=== PATIENT | male | born 1995 | race Caucasian/White ===

== ENCOUNTER 2023-01-13 21:04 | Emergency (ER) | payer SELFPAY ==
[2023-01-13] MEDS ORDERED: ONDANSETRON 4 MG/2 ML VIAL ONE ×2 (21:58→22:09)
[2023-01-13] MEDS ORDERED: MORPHINE 4 MG/ML SYR ONE ×3 (21:58→22:45)
[2023-01-13] MEDS ORDERED: PANTOPRAZOLE 40 MG INJ ONE ×2 (21:58→22:09)
[2023-01-13] MEDS ORDERED: FAMOTIDINE 20 MG/2 ML VIAL IV ONE ×2 (21:59→22:09)
[2023-01-13] MEDS ORDERED: NA CHLORIDE 0.9% 1,000 ML ONE (22:09)
[2023-01-13 22:11] LABS: Absolute Lymphocytes (CBC) 2.4 K/uL (0.7-4.9); Hematocrit 46.4 % (39.6-49.0); Lymphocytes % 26.2 % (15.3-44.8); MCV 85.1 fL (80-100); MPV 8.2 fL (7.6-11.3); RBC Red Blood Cell Count 5.45 M/uL (4.33-5.43)
[2023-01-13 22:16] LABS: Protime INR 0.93
[2023-01-13 22:29] LABS: Albumin 4.3 g/dL (3.4-5.0); Bilirubin Total 0.6 mg/dL (0.2-1.0); Potassium 3.8 mEq/L (3.5-5.1)
[2023-01-14] MEDS ORDERED: HYDROMORPHONE HCL 1 MG/ML INJ ONE (00:19)
[2023-01-14] MEDS ORDERED: NA CHLORIDE 0.9% 1,000 ML ONE (00:20)
[2023-01-14 00:52] LABS: Barbiturates NEGATIVE (NEGATIVE); Benzodiazepines NEGATIVE (NEGATIVE); Cocaine NEGATIVE (NEGATIVE); METHAMPHETAM NEGATIVE (NEGATIVE); Methadone NEGATIVE (NEGATIVE); Opiates POSITIVE (NEGATIVE); Phencyclidine NEGATIVE (NEGATIVE); THC Cannibis NEGATIVE (NEGATIVE)
[2023-01-14] MEDS ORDERED: MAGNES/ALUMIN/SIMET 30ML UCUP ONE (01:44)
[2023-01-14] MEDS ORDERED: LIDOCAINE VISCOUS 2% SOLN 15 ML UDC ONE (01:45)
[2023-01-14] MEDS ORDERED: PROMETHAZINE INJ 25 MG/ML AMP ONE (02:03)
--- NOTE | 2023-01-14 02:23 | ER ---
Nurse's Notes [facility] Name: Javier Meredith Age: 27 yrs Sex: Male : 1995 Arrival Date: 01/13/2023 Time: 21:04 Bed 4 Private MD: Diagnosis: Nausea with vomiting, unspecified Presentation: 01/13 21:26 Chief complaint: Patient states: started vomiting around 0700 this morning. at first it lg3 was just a little bit but around 1200 i started having abdominal pain and the amount of blood increased. now its solid blood. Coronavirus screen: Client denies travel out of the [place] in the last 14 days. At this time, the client does not indicate any symptoms associated with coronavirus-19. Ebola Screen: No symptoms or risks identified at this time. Initial Sepsis Screen: Does the patient meet any 2 criteria? No. Patient's initial sepsis screen is negative. Does the patient have a suspected source of infection? No. Patient's initial sepsis screen is negative. Risk Assessment: Do you want to hurt yourself or someone else? Patient reports no desire to harm self or others. Onset of symptoms was January 13, 2023. 21:26 Method Of Arrival: Ambulatory lg3 21:26 Acuity: FRITZ 3 lg3 Triage Assessment: 21:31 General: Appears in no apparent distress. uncomfortable, Behavior is calm, cooperative. lg3 Pain: Complains of pain in epigastric area, right upper quadrant and left upper quadrant. EENT: No deficits noted. No signs and/or symptoms were reported regarding the EENT system. Neuro: No deficits noted. Bae Agitation-Sedation Scale (RASS): 0 - Alert and Calm Level of Consciousness is awake, alert, obeys commands, Oriented to person, place, time, situation. Cardiovascular: No deficits noted. Respiratory: No deficits noted. Airway is patent Respiratory effort is even, unlabored, Respiratory pattern is regular, symmetrical. GI: Reports upper abdominal pain, bloating, cramping, epigastric pain, indigestion, nausea, vomiting. : No deficits noted. No signs and/or symptoms were reported regarding the genitourinary system. Derm: No deficits noted. Skin is intact, is healthy with good turgor, Skin is dry, Skin is normal, Skin temperature is warm. Musculoskeletal: No deficits noted. No signs and/or symptoms reported regarding the musculoskeletal system. Circulation, motion, and sensation intact. Range of motion: intact in all extremities. Historical: - Allergies: 21:30 PENICILLINS; lg3 - Home Meds: 21:30 None [Active]; lg3 - PMHx: 21:30 None; lg3 - PSHx: 21:30 left arm; lg3 21:31 Cholecystectomy; Appendectomy; lg3 - Immunization history:: Adult Immunizations up to date, Client reports having NOT received the Covid vaccine. - Social history:: Smoking status: Patient denies any tobacco usage or history of. Patient uses alcohol, only on a social basis. Screenin:22 [facility] ED Fall Risk Assessment (Adult) History of falling in the last 3 months, lg3 including since admission No falls in past 3 months (0 pts). Abuse screen: Denies threats or abuse. Denies injuries from another. Nutritional screening: No deficits noted. Tuberculosis screening: No symptoms or risk factors identified. Assessment: 22:21 General: see triage assessment . lg3 22:22 GI: Abdomen is flat, non-distended, Bowel sounds present X 4 quads. Abd is soft X 4 lg3 quads Abdomen is tender to palpation in epigastric area, right upper quadrant and left upper quadrant Reports upper abdominal pain, cramping, nausea, vomiting. 22:47 Pain: Complains of pain in left upper quadrant and right upper quadrant and epigastric lg3 area Pain currently is 9 out of 10 on a pain scale. Noted to be grimacing, guarding, resistant to movement, Also complains of nausea. 23:58 Reassessment: Patient appears in no apparent distress at this time. No changes from lg3 previously documented assessment. Patient and/or family updated on plan of care and expected duration. Pain level reassessed. Patient is alert, oriented x 3, equal unlabored respirations, skin warm/dry/pink. 01/14 01:47 Reassessment: Patient appears in no apparent distress at this time. No changes from lg3 previously documented assessment. Patient and/or family updated on plan of care and expected duration. Pain level reassessed. Patient is alert, oriented x 3, equal unlabored respirations, skin warm/dry/pink. Patient states symptoms have improved. 02:42 Reassessment: Patient appears in no apparent distress at this time. No changes from lg3 previously documented assessment. Patient and/or family updated on plan of care and expected duration. Pain level reassessed. Patient is alert, oriented x 3, equal unlabored respirations, skin warm/dry/pink. Patient states feeling better. Patient states symptoms have improved. Vital Signs: 01/13 21:26 BP 158 / 87; Pulse 96; Resp 16 S; Temp 99(TE); Pulse Ox 100% on R/A; Weight 104.33 kg lg3 (R); Height 6 ft. 0 in. (R); Pain 9/10; 22:22 BP 153 / 91; Pulse 80; Resp 17 S; Pulse Ox 98% on R/A; lg3 23:59 BP 139 / 92; Pulse 78; Resp 16 S; Pulse Ox 99% on R/A; lg3 01/14 02:43 BP 141 / 88; Pulse 77; Resp 17 S; Pulse Ox 99% on R/A; lg3 01/13 21:26 Body Mass Index 31.19 (104.33 kg, 182.88 cm) lg3 01/13 21:26 Pain Scale: Adult lg3 ED Course: 01/13 21:09 Patient arrived in ED. ag3 21:15 Aric Parra PA is PHCP. cp 21:15 Barber Menezes MD is Attending Physician. cp 21:30 Triage completed. lg3 21:31 Arm band placed on right wrist. lg3 21:52 Stefania Szymanski, RN is Primary Nurse. aa9 21:57 Inserted saline lock: 22 gauge in left antecubital area, using aseptic technique. Blood lg3 collected. 21:58 CBC with Diff Sent. lg3 21:58 CMP Sent. lg3 21:58 Lipase Sent. lg3 21:58 Ptt, Activated Sent. lg3 21:58 PT-INR Sent. lg3 21:58 ETOH Level Sent. lg3 22:22 Patient has correct armband on for positive identification. Placed in gown. Bed in low lg3 position. Call light in reach. Side rails up X 1. Client placed on continuous cardiac and pulse oximetry monitoring. NIBP monitoring applied. Door closed. Noise minimized. Warm blanket given. 23:04 CT Abd/Pelvis - IV Contrast Only In Process Unspecified. EDMS 01/14 00:26 UDS Sent. lg3 02:22 George House MD is Referral Physician. cp 02:43 No provider procedures requiring assistance completed. IV discontinued, intact, lg3 bleeding controlled, No redness/swelling at site. Pressure dressing applied. Administered Medications: 01/13 21:58 Drug: NS 0.9% IV 1000 ml Route: IV; Rate: 1 bolus; Site: left antecubital; lg3 22:48 Follow up: Response: No adverse reaction; IV Status: Completed infusion; IV Intake: lg3 1000ml 21:58 Drug: Famotidine IVP 20 mg Route: IVP; Site: left antecubital; lg3 22:47 Follow up: Response: No adverse reaction lg3 21:58 Drug: Ondansetron IVP 4 mg Route: IVP; Site: left antecubital; lg3 22:48 Follow up: Response: No adverse reaction; Marked relief of symptoms; Nausea is decreasedlg3 21:58 Drug: Pantoprazole IVP 40 mg Route: IVP; Site: left antecubital; lg3 22:47 Follow up: Response: No adverse reaction lg3 21:58 Drug: morphine IVP or IV 4 mg Route: IVP; Infused Over: 4 mins; Site: left antecubital; lg3 22:47 Follow up: Response: No adverse reaction; No change in condition; Pain is unchanged, lg3 physician notified 22:47 Drug: morphine IVP or IV 4 mg Route: IVP; Infused Over: 4 mins; Site: left antecubital; lg3 01/14 02:42 Follow up: Response: No adverse reaction; No change in condition lg3 00:26 Drug: HYDROmorphone IVP 1 mg Route: IVP; Site: left antecubital; lg3 02:42 Follow up: Response: No adverse reaction; Marked relief of symptoms; Pain is decreased; lg3 RASS: Alert and Calm (0) 00:26 Drug: NS 0.9% IV 1000 ml Route: IV; Rate: 1 bolus; Site: left antecubital; lg3 02:46 Follow up: Response: No adverse reaction; IV Status: Completed infusion; IV Intake: lg3 1000ml 01:46 Drug: GI Cocktail without - (Maalox PO Suspension 30 ml, Lidocaine Mucous aa9 Membrane Liquid 2 % 15 ml) Route: PO; 02:07 Follow up: Response: Nausea is increased lg3 02:07 Drug: Promethazine IVP 25 mg Route: IVP; Site: left antecubital; lg3 02:42 Follow up: Response: No adverse reaction; Marked relief of symptoms; Nausea is decreasedlg3 Medication: 02:44 VIS not applicable for this client. lg3 Intake: 01/13 22:48 IV: 1000ml; Total: 1000ml. lg3 01/14 02:46 IV: 1000ml; Total: 2000ml. lg3 Outcome: 02:22 Discharge ordered by . andrea 02:43 Discharged to home ambulatory. lg3 02:43 Condition: stable 02:43 Discharge instructions given to patient, Instructed on discharge instructions, follow up and referral plans. medication usage, Demonstrated understanding of instructions, follow-up care, medications, Prescriptions given X 2. 02:46 Patient left the ED. lg3 Signatures: Dispatcher [employer] EDMS Aric Parra PA PA cp Gomez, Alice ag3 Macie Francois RN RN lg3 Stefania Szymanski RN RN aa9 Corrections: (The following items were deleted from the chart) 01/13 21:32 21:30 Allergies: No Known Allergies; lg3 lg3
--- NOTE | 2023-01-14 02:23 | EDPHYS ---
Physician Documentation [facility] Name: Javier Meredith Age: 27 yrs Sex: Male : 1995 Arrival Date: 01/13/2023 Time: 21:04 Bed 4 Private MD: ED Physician Barber Menezes HPI: 01/13 22:00 This 27 yrs old Male presents to ER via Ambulatory with complaints of Vomiting. cp 22:00 The patient presents to the emergency department with nausea, that is moderate, cp vomiting, that is continuous, described as bright red blood, abdominal pain, of the epigastric area, right upper quadrant and left upper quadrant. Onset: The symptoms/episode began/occurred this morning, and became worse throughout day. Possible causes: unknown. Associated signs and symptoms: Pertinent positives: anorexia, GI bleeding, Pertinent negatives: constipation, diarrhea, fever. Severity of symptoms: in the emergency department the symptoms are unchanged despite home interventions. The patient has not experienced similar symptoms in the past. Historical: - Allergies: 21:30 PENICILLINS; lg3 - Home Meds: 21:30 None [Active]; lg3 - PMHx: 21:30 None; lg3 - PSHx: 21:30 left arm; lg3 21:31 Cholecystectomy; Appendectomy; lg3 - Immunization history:: Adult Immunizations up to date, Client reports having NOT received the Covid vaccine. - Social history:: Smoking status: Patient denies any tobacco usage or history of. Patient uses alcohol, only on a social basis. ROS: 22:05 Constitutional: Positive for chills, poor PO intake, Negative for body aches, fever. cp 22:05 Eyes: Negative for injury, pain, redness, and discharge. cp 22:05 ENT: Negative for drainage from ear(s), ear pain, difficulty swallowing, difficulty handling secretions. 22:05 Cardiovascular: Negative for chest pain, palpitations. 22:05 Respiratory: Negative for cough, shortness of breath, wheezing. 22:05 Abdomen/GI: Positive for abdominal pain, nausea and vomiting, anorexia, hematemesis. 22:05 Neuro: Negative for altered mental status, dizziness, headache, syncope, weakness. 22:05 All other systems are negative. Exam: 22:10 Constitutional: The patient appears in no acute distress, alert, awake, cp non-diaphoretic, non-toxic, well developed, well nourished, uncomfortable. 22:10 Head/Face: Normocephalic, atraumatic. cp 22:10 Eyes: Periorbital structures: appear normal, Conjunctiva: normal, no exudate, no injection, Sclera: no appreciated abnormality, Lids and lashes: appear normal, bilaterally. 22:10 ENT: External ear(s): are unremarkable, Nose: is normal, Mouth: Lips: moist, Oral mucosa: pink and intact, moist, Posterior pharynx: is normal, airway is patent, no erythema, no exudate. 22:10 Neck: ROM/movement: is normal, is supple, without pain, no range of motions limitations. 22:10 Chest/axilla: Inspection: normal. 22:10 Cardiovascular: Rate: normal, Rhythm: regular. 22:10 Respiratory: the patient does not display signs of respiratory distress, Respirations: normal, no use of accessory muscles, no retractions, labored breathing, is not present, Breath sounds: are clear throughout, no decreased breath sounds, no stridor, no wheezing. 22:10 Abdomen/GI: Inspection: abdomen appears normal, Bowel sounds: active, all quadrants, Palpation: soft, in all quadrants, severe abdominal tenderness, in the epigastric area. 22:10 Back: pain, is absent, ROM is normal. 22:10 Neuro: Orientation: to person, place \T\ time. Mentation: is normal, Motor: moves all fours, strength is normal, Sensation: is normal. Vital Signs: 21:26 BP 158 / 87; Pulse 96; Resp 16 S; Temp 99(TE); Pulse Ox 100% on R/A; Weight 104.33 kg lg3 (R); Height 6 ft. 0 in. (R); Pain 9/10; 22:22 BP 153 / 91; Pulse 80; Resp 17 S; Pulse Ox 98% on R/A; lg3 23:59 BP 139 / 92; Pulse 78; Resp 16 S; Pulse Ox 99% on R/A; 3 01/14 02:43 BP 141 / 88; Pulse 77; Resp 17 S; Pulse Ox 99% on R/A; lg3 01/13 21:26 Body Mass Index 31.19 (104.33 kg, 182.88 cm) lg3 01/13 21:26 Pain Scale: Adult lg3 MDM: 01/13 21:35 Patient medically screened. cp 01/14 02:21 Data reviewed: vital signs, nurses notes, lab test result(s), radiologic studies, CT cp scan, plain films. 02:21 Consideration of Admission/Observation Escalation of care including cp admission/observation considered. I considered the following discharge prescriptions or medication management in the emergency department Medications were administered in the Emergency Department. See MAR. Counseling: I had a detailed discussion with the patient and/or guardian regarding: the historical points, exam findings, and any diagnostic results supporting the discharge/admit diagnosis, lab results, radiology results, the need for outpatient follow up, a grade school teacher, to return to the emergency department if symptoms worsen or persist or if there are any questions or concerns that arise at home. Response to treatment: the patient's symptoms have markedly improved after treatment, VSS. Pain and nausea markedly improved and vomiting resolved. Patient tolerating po fluids. Will discharge to home for continued monitoring. 01/13 21:39 Order name: CBC with Diff; Complete Time: 22:39 cp 01/13 21:39 Order name: CMP; Complete Time: 22:39 cp 01/13 21:39 Order name: Lipase; Complete Time: 22:39 cp 01/13 21:39 Order name: UDS; Complete Time: 01:24 cp 01/14 01:24 Interpretation: Normal except: OPI POSITIVE. cp 01/13 21:39 Order name: ETOH Level; Complete Time: 22:39 cp 01/13 21:39 Order name: PT-INR; Complete Time: 22:39 cp 01/13 21:39 Order name: Ptt, Activated; Complete Time: 22:39 cp 01/13 21:39 Order name: CT Abd/Pelvis - IV Contrast Only cp 01/13 21:39 Order name: IV Saline Lock; Complete Time: 21:58 cp 01/13 21:39 Order name: Labs collected and sent; Complete Time: 21:58 cp Administered Medications: 01/13 21:58 Drug: NS 0.9% IV 1000 ml Route: IV; Rate: 1 bolus; Site: left antecubital; lg3 22:48 Follow up: Response: No adverse reaction; IV Status: Completed infusion; IV Intake: lg3 1000ml 21:58 Drug: Famotidine IVP 20 mg Route: IVP; Site: left antecubital; lg3 22:47 Follow up: Response: No adverse reaction lg3 21:58 Drug: Ondansetron IVP 4 mg Route: IVP; Site: left antecubital; lg3 22:48 Follow up: Response: No adverse reaction; Marked relief of symptoms; Nausea is decreasedlg3 21:58 Drug: Pantoprazole IVP 40 mg Route: IVP; Site: left antecubital; lg3 22:47 Follow up: Response: No adverse reaction lg3 21:58 Drug: morphine IVP or IV 4 mg Route: IVP; Infused Over: 4 mins; Site: left antecubital; lg3 22:47 Follow up: Response: No adverse reaction; No change in condition; Pain is unchanged, lg3 physician notified 22:47 Drug: morphine IVP or IV 4 mg Route: IVP; Infused Over: 4 mins; Site: left antecubital; lg3 01/14 02:42 Follow up: Response: No adverse reaction; No change in condition lg3 00:26 Drug: HYDROmorphone IVP 1 mg Route: IVP; Site: left antecubital; lg3 02:42 Follow up: Response: No adverse reaction; Marked relief of symptoms; Pain is decreased; lg3 RASS: Alert and Calm (0) 00:26 Drug: NS 0.9% IV 1000 ml Route: IV; Rate: 1 bolus; Site: left antecubital; lg3 02:46 Follow up: Response: No adverse reaction; IV Status: Completed infusion; IV Intake: lg3 1000ml 01:46 Drug: GI Cocktail without - (Maalox PO Suspension 30 ml, Lidocaine Mucous aa9 Membrane Liquid 2 % 15 ml) Route: PO; 02:07 Follow up: Response: Nausea is increased lg3 02:07 Drug: Promethazine IVP 25 mg Route: IVP; Site: left antecubital; lg3 02:42 Follow up: Response: No adverse reaction; Marked relief of symptoms; Nausea is decreasedlg3 Disposition Summary: 01/14/23 02:22 Discharge Ordered Location: Home cp Problem: new cp Symptoms: have improved cp Condition: Stable cp Diagnosis - Nausea with vomiting, unspecified cp Followup: cp - With: George House MD - When: 2 - 3 days - Reason: Recheck today's complaints Discharge Instructions: - Discharge Summary Sheet cp - Gastritis, Adult cp - Nausea and Vomiting, Adult cp - Smoking Tobacco Information, Adult cp Forms: - Medication Reconciliation Form cp - Thank You Letter cp - Antibiotic Education cp - Prescription Opioid Use cp Prescriptions: - Protonix 40 mg Oral tablet,delayed release (DR/EC) - take 1 tablet by ORAL route every 12 hours for 15 days; 30 tablet; Refills: 0, cp Product Selection Permitted - promethazine 25 mg Oral Tablet - take 1 tablet by ORAL route every 6 hours As needed; 20 tablet; Refills: 0, cp Product Selection Permitted Signatures: Dispatcher [employer] EDMS Aric Parra PA PA cp Macie Francois RN RN lg3 Stefania Szymanski RN RN aa9 Corrections: (The following items were deleted from the chart) 01/13 21:32 21:30 Allergies: No Known Allergies; lg3 lg3
[2023-01-14 04:30] VITALS: TEMP 99
[2023-01-14 04:32] VITALS: O2SAT 99
[2023-01-14 04:34] VITALS: BP 141/88
--- NOTE | 2023-01-14 11:23 | RAD REPORT ---
EXAM DESCRIPTION: CT - Abdomen Pelvis W Contrast - 01/14/2023 6:56 am CLINICAL HISTORY: Epigastric pain. TECHNIQUE: CT scan of the abdomen and pelvis was performed with intravenous contrast. 5 mm axial olga ges were obtained along with coronal and sagittal reformatted images. DOSE OPTIMIZATION: This facility uses dose optimization techniques as appropriate to perform exams, i ncluding at least one of the following techniques: 1. Automated exposure control. 2. Adjustment of the mA and/or kV according to patient size (this includes techniques or standardized protocols for targeted exams where dose is matched to the indication/reason for exam, i.e. extremiti es or head). 3. Use of iterative reconstructive technique. COMPARISON: None. FINDINGS: Lung Bases: No active disease. Liver: There is diffuse fatty liver infiltration. Spleen: Normal. Pancreas: Normal. Gallbladder: Surgically absent. Adrenal Glands: Normal. Kidneys: Normal. Retroperitoneal Structures: Normal. Bowel Survey: The stomach is unremarkable. There are multiple mildly distended small bowel loops with air-fluid levels. The appendix is unremarkable. The colon is nondistended. Prostate Gland: Normal size. Urinary Bladder: Normal. Peritoneal Cavity: Normal. Mesenteric Structures: Normal. Abdominal Wall: No hernia. Bony Structures: No suspicious lesions. IMPRESSION: 1. Findings suggestive of enteritis. 2. There is diffuse fatty liver infiltration. Electronically signed by: Carlito Saenz MD 01/14/2023 1:17 AM CDT Due to temporary technical issues with the PACS/Fluency reporting system, reports are being signed by the in house radiologist without review as a courtesy to ensure prompt reporting. The interpreting r adiologist is fully responsible for the content of the report.
== END 2023-01-14 02:46 | disposition home or self-care (01) ==
LOC: ER 21:04
DX: R11.2 Nausea with vomiting, unspecified (principal)
CPT/HCPCS: 36415; 74177; 80053; 80307; 83690; 85025; 85610; 85730; 96361; 96374; 96375; 99284; C9113; G0480; J1170; J2405; J2550; J7030; Q9967

== ENCOUNTER 2023-01-14 13:56 | Inpatient (IN) | payer SELFPAY ==
[2023-01-14 15:04] LABS: Absolute Lymphocytes (CBC) 1.8 K/uL (0.7-4.9); Hematocrit 42.7 % (39.6-49.0); MCV 84.5 fL (80-100); MPV 8.1 fL (7.6-11.3); RBC Red Blood Cell Count 5.05 M/uL (4.33-5.43)
[2023-01-14 15:09] LABS: Protime INR 0.91
--- NOTE | 2023-01-14 15:18 | ER ---
Nurse's Notes [facility] Name: Javier Meredith Age: 27 yrs Sex: Male : 1995 Arrival Date: 01/14/2023 Time: 13:56 Bed 17 Private MD: Diagnosis: Hematemesis;Infectious gastroenteritis and colitis, unspecified;Intractable vomiting with failure of outpatient management Presentation: 01/14 14:04 Chief complaint: Patient states: he was evaluated in the ED last night for abdominal ap3 pain and vomiting blood, and was told upon discharge that if it occurred again, to return for further evaluation. Patient reports the abdominal pain is still present and he did vomit blood again after attempting to eat and drink fluids. patient states his pain is currently a 9/10 on the pain scale. Coronavirus screen: At this time, the client does not indicate any symptoms associated with coronavirus-19. Ebola Screen: No symptoms or risks identified at this time. Initial Sepsis Screen: Does the patient meet any 2 criteria? No. Patient's initial sepsis screen is negative. Does the patient have a suspected source of infection? Yes: Acute abdominal pain. Risk Assessment: Do you want to hurt yourself or someone else? Patient reports no desire to harm self or others. Onset of symptoms was January 13, 2023. 14:04 Method Of Arrival: Ambulatory ap3 14:04 Acuity: FRITZ 3 ap3 Triage Assessment: 14:06 General: Appears uncomfortable, Behavior is calm, cooperative, appropriate for age. ap3 Pain: Complains of pain in abdomen Pain currently is 9 out of 10 on a pain scale. Neuro: Level of Consciousness is awake, alert, obeys commands, Oriented to person, place, time, situation. Cardiovascular: Patient's skin is warm and dry. Respiratory: Airway is patent Respiratory effort is even, unlabored, Respiratory pattern is regular, symmetrical. GI: Reports lower abdominal pain, upper abdominal pain, nausea, vomiting. Historical: - Allergies: 14:06 PENICILLINS; ap3 - PSHx: 14:06 Appendectomy; Cholecystectomy; left arm; ap3 - Immunization history:: Client reports having NOT received the Covid vaccine. - Social history:: Smoking status: Patient reports use of chewing tobacco. - Family history:: not pertinent. - Hospitalizations: : No recent hospitalization is reported. Screenin:07 [facility] ED Fall Risk Assessment (Adult) History of falling in the last 3 months, ap3 including since admission No falls in past 3 months (0 pts). Abuse screen: Denies threats or abuse. Nutritional screening: No deficits noted. Tuberculosis screening: No symptoms or risk factors identified. Assessment: 14:40 Reassessment: Patient appears in no apparent distress at this time. Patient and/or nj1 family updated on plan of care and expected duration. Pain level reassessed. Patient is alert, oriented x 3, equal unlabored respirations, skin warm/dry/pink. Pain: Complains of pain in abdomen Pain currently is 9 out of 10 on a pain scale. Quality of pain is described as stabbing. 14:40 Reassessment: See triage assessment. Neuro: Level of Consciousness is awake, alert, nj1 obeys commands, Oriented to person, place, time, situation. Cardiovascular: Patient's skin is warm and dry. Respiratory: Airway is patent Respiratory effort is even, unlabored. GI: Reports upper abdominal pain, intolerance of fluids, intolerance of food, nausea, Vomiting blood. 15:40 Reassessment: Patient appears in no apparent distress at this time. No changes from [facility] previously documented assessment. Patient and/or family updated on plan of care and expected duration. Pain level reassessed. Patient is alert, oriented x 3, equal unlabored respirations, skin warm/dry/pink. 17:00 Reassessment: Patient appears in no apparent distress at this time. Patient and/or nj1 family updated on plan of care and expected duration. Pain level reassessed. Patient is alert, oriented x 3, equal unlabored respirations, skin warm/dry/pink. Pain: Complains of pain in abdomen Pain currently is 9 out of 10 on a pain scale. Vital Signs: 14:04 BP 153 / 103; Pulse 80; Resp 19; Temp 98.4; Pulse Ox 100% ; Weight 104.33 kg; Height 6 ap3 ft. 0 in. ; Pain 9/10; 14:42 BP 138 / 86; Pulse 72; Resp 18; Pulse Ox 99% on R/A; Pain 9/10; nj1 15:40 BP 118 / 83; Pulse 66; Resp 16; Pulse Ox 98% ; Pain 9/10; nj1 17:00 BP 123 / 87; Pulse 69; Resp 16; Pulse Ox 100% on R/A; Pain 9/10; nj1 14:04 Body Mass Index 31.19 (104.33 kg, 182.88 cm) ap3 14:04 Pain Scale: Adult ap3 14:42 Pain Scale: Adult nj1 15:40 Pain Scale: Adult nj1 17:00 Pain Scale: Adult nj1 ED Course: 13:58 Patient arrived in ED. rg4 14:06 Triage completed. ap3 14:07 Addison Guardado MD is Attending Physician. rn 14:07 Arm band placed on right wrist. ap3 14:23 Debbi Peraza, ELLYN is Primary Nurse. nj1 14:40 Patient has correct armband on for positive identification. Bed in low position. Call nj1 light in reach. 14:42 Inserted saline lock: 20 gauge in left antecubital area, using aseptic technique. Blood nj1 collected. 14:54 Protime (+inr) Sent. nj1 14:54 Ptt, Activated Sent. nj1 14:54 CBC with Diff Sent. nj1 14:54 CMP Sent. nj1 14:54 Lipase Sent. nj1 15:17 Jarrod Guardado MD is Hospitalizing Provider. rn 23:35 Vale Lee, ELLYN is Primary Nurse. ha1 Administered Medications: 14:42 Drug: NS 0.9% IV 1000 ml Route: IV; Rate: 1 bolus; Site: left antecubital; nj1 15:05 Follow up: Response: No adverse reaction nj1 14:42 Drug: Famotidine IVP 20 mg Route: IVP; Site: left antecubital; nj1 15:05 Follow up: Response: No adverse reaction nj1 14:42 Drug: Ondansetron IVP 4 mg Route: IVP; Site: left antecubital; nj1 15:05 Follow up: Response: No adverse reaction nj1 15:43 Drug: Promethazine IVP 12.5 mg Route: IVP; Site: left antecubital; nj1 16:55 Follow up: Response: No adverse reaction; Nausea is decreased nj1 15:45 Drug: Pantoprazole IVP 40 mg Route: IVP; Site: left antecubital; nj1 16:56 Follow up: Response: No adverse reaction nj1 15:47 Drug: Pantoprazole IV 8 mg/hr Route: IV; Rate: 25 ml/hr; Site: left antecubital; nj1 17:00 Drug: morphine IVP or IV 4 mg Route: IVP; Infused Over: 4 mins; Site: left antecubital; nj1 18:51 Drug: morphine IVP or IV 4 mg Route: IVP; Infused Over: 4 mins; Site: left antecubital; ll1 Outcome: 15:17 Decision to Hospitalize by Provider. rn 01/15 07:43 Patient left the ED. db Signatures: Addison Guardado MD MD rn Garcia, Rubi rg4 Carmen Fuentes RN RN ap3 Marc Rivera RN RN ll1 Vale Lee RN RN ha1 Rebecca Mckinnon RN RN db Debbi Peraza RN RN nj1
--- NOTE | 2023-01-14 15:18 | EDPHYS ---
Physician Documentation [facility] Name: Javier Meredith Age: 27 yrs Sex: Male : 1995 Arrival Date: 01/14/2023 Time: 13:56 Bed 17 Private MD: ED Physician Addison Guardado HPI: 01/14 15:09 This 27 yrs old Male presents to ER via Ambulatory with complaints of Abdominal Pain, rn Vomiting Blood. 15:09 The patient presents to the emergency department vomiting blood, a small amount, blood rn streaked emesis, with multiple such episodes, 10 times since symptom onset. Onset: The symptoms/episode began/occurred yesterday. Abdominal pain: located in the epigastric area. Modifying factors: The symptoms are alleviated by nothing, the symptoms are aggravated by food, PO intake. Associated signs and symptoms: Pertinent positives: vomiting, Pertinent negatives: dizziness at rest, dizziness when standing, fever, shortness of breath. Severity of symptoms: At their worst the symptoms were moderate in the emergency department the symptoms are unchanged. The patient has not experienced similar symptoms in the past. The patient has been recently seen at the [facility] Emergency Department. Pt seen here yesterday for same complaint, diagnosed with hematemesis, 10-11 episodes since yesterday, not tolerating PO. No fever. No hx of GERD. + mild epigastric abd pain. NO blood thinners. No blood in stool. . Historical: - Allergies: 14:06 PENICILLINS; ap3 - PSHx: 14:06 Appendectomy; Cholecystectomy; left arm; ap3 - Immunization history:: Client reports having NOT received the Covid vaccine. - Social history:: Smoking status: Patient reports use of chewing tobacco. - Family history:: not pertinent. - Hospitalizations: : No recent hospitalization is reported. ROS: 15:09 Constitutional: Negative for fever, chills, and weight loss, Eyes: Negative for injury, rn pain, redness, and discharge, Cardiovascular: Negative for chest pain, palpitations, and edema, Respiratory: Negative for shortness of breath, cough, wheezing, and pleuritic chest pain, Abdomen/GI: Negative for diarrhea, and constipation MS/Extremity: Negative for injury and deformity, Skin: Negative for injury, rash, and discoloration, Neuro: Negative for headache, numbness, tingling, and seizure. Exam: 15:09 Constitutional: This is a well developed, well nourished patient who is awake, alert, rn and in no acute distress. Eyes: Normal conjunctivae Cardiovascular: Regular rate and rhythm. No pulse deficits. Respiratory: No increased work of breathing, no retractions or nasal flaring. Abdomen/GI: Soft, non-tender Vital Signs: 14:04 BP 153 / 103; Pulse 80; Resp 19; Temp 98.4; Pulse Ox 100% ; Weight 104.33 kg; Height 6 ap3 ft. 0 in. ; Pain 9/10; 14:42 BP 138 / 86; Pulse 72; Resp 18; Pulse Ox 99% on R/A; Pain 9/10; nj1 15:40 BP 118 / 83; Pulse 66; Resp 16; Pulse Ox 98% ; Pain 9/10; nj1 17:00 BP 123 / 87; Pulse 69; Resp 16; Pulse Ox 100% on R/A; Pain 9/10; nj1 14:04 Body Mass Index 31.19 (104.33 kg, 182.88 cm) ap3 14:04 Pain Scale: Adult ap3 14:42 Pain Scale: Adult nj1 15:40 Pain Scale: Adult nj1 17:00 Pain Scale: Adult nj1 MDM: 14:07 Patient medically screened. rn 15:09 Differential diagnosis: gastritis, esophagitis, Vanesa-hood tear. Data reviewed: rn vital signs, nurses notes, lab test result(s), radiologic studies, CT scan, and as a result, I will admit patient. Consideration of Admission/Observation Patient was admitted/placed on observation. Escalation of care including admission/observation considered. Management of patient was discussed with the following: Hospitalist: . Counseling: I had a detailed discussion with the patient and/or guardian regarding: the historical points, exam findings, and any diagnostic results supporting the discharge/admit diagnosis, the need for further work-up and treatment in the hospital. 15:16 I considered the following discharge prescriptions or medication management in the rn emergency department Medications were administered in the Emergency Department. See MAR. Response to treatment: There is no appreciated change of the patient's symptoms at this time, and as a result, I will admit patient. 01/14 14:14 Order name: CBC with Diff; Complete Time: 16:13 rn 01/14 14:14 Order name: CMP; Complete Time: 16:13 rn 01/14 14:14 Order name: Lipase; Complete Time: 16:13 rn 01/14 14:14 Order name: Protime (+inr); Complete Time: 15:16 rn 01/14 14:14 Order name: Ptt, Activated; Complete Time: 15:16 rn 01/14 17:59 Order name: Creatine Phosphokinase EDAL 01/14 17:59 Order name: Magnesium EDMS 01/14 17:59 Order name: Phosphorus EDMS 01/14 17:59 Order name: Urinalysis w/ reflexes EDMS 01/14 17:59 Order name: CBC with Automated Diff EDMS 01/14 17:59 Order name: CBC with Automated Diff EDMS 01/14 17:59 Order name: Comprehensive Metabolic Panel EDAL 01/14 17:59 Order name: Comprehensive Metabolic Panel EDAL 01/14 17:53 Order name: Lacy, Dr Consult EDAL 01/14 17:59 Order name: Clear Liquid [facility] 01/14 14:14 Order name: IV Saline Lock; Complete Time: 14:54 rn 01/14 14:14 Order name: Labs collected and sent; Complete Time: 14:54 rn Administered Medications: 14:42 Drug: NS 0.9% IV 1000 ml Route: IV; Rate: 1 bolus; Site: left antecubital; nj1 15:05 Follow up: Response: No adverse reaction nj1 14:42 Drug: Famotidine IVP 20 mg Route: IVP; Site: left antecubital; nj1 15:05 Follow up: Response: No adverse reaction nj1 14:42 Drug: Ondansetron IVP 4 mg Route: IVP; Site: left antecubital; nj1 15:05 Follow up: Response: No adverse reaction nj1 15:43 Drug: Promethazine IVP 12.5 mg Route: IVP; Site: left antecubital; nj1 16:55 Follow up: Response: No adverse reaction; Nausea is decreased nj1 15:45 Drug: Pantoprazole IVP 40 mg Route: IVP; Site: left antecubital; nj1 16:56 Follow up: Response: No adverse reaction nj1 15:47 Drug: Pantoprazole IV 8 mg/hr Route: IV; Rate: 25 ml/hr; Site: left antecubital; nj1 17:00 Drug: morphine IVP or IV 4 mg Route: IVP; Infused Over: 4 mins; Site: left antecubital; nj1 18:51 Drug: morphine IVP or IV 4 mg Route: IVP; Infused Over: 4 mins; Site: left antecubital; 1 Disposition Summary: 01/14/23 15:17 Hospitalization Ordered Hospitalization Status: Observation rn Provider: Jarrod Guardado rn Condition: Stable rn Problem: new rn Symptoms: are unchanged rn Bed/Room Type: Standard rn Location: Telemetry/MedSurg (observation)(01/15/23 05:52) eb1 Room Assignment: 405(01/15/23 05:52) eb Diagnosis - Hematemesis rn - Infectious gastroenteritis and colitis, unspecified rn - Intractable vomiting with failure of outpatient management rn Forms: - Medication Reconciliation Form rn - SBAR form rn Signatures: Dispatcher [employer] EDMS Addison Guardado MD MD rn Prokisch, Amanda RN RN Smita Vega RN RN eb1 Marc Rivera RN RN 1 Debbi Peraza RN RN nj1 Corrections: (The following items were deleted from the chart) 18:49 15:17 Telemetry/MedSurg (observation) rn [facility] 18:49 15:17 rn 1 01/15 05:52 01/14 18:[address] [facility] ER HOLD eb1 eb1 01/15 05:52 01/14 18:49 ERHOLD- eb1 [facility]
[2023-01-14] MEDS ORDERED: NA CHLORIDE 0.9% 250 ML ONE (15:27)
[2023-01-14] MEDS ORDERED: PANTOPRAZOLE 40 MG INJ ONE ×2 (15:27→19:58)
[2023-01-14] MEDS ORDERED: PROMETHAZINE INJ 25 MG/ML AMP ONE ×2 (15:28→20:32)
[2023-01-14 15:49] LABS: Albumin 3.8 g/dL (3.4-5.0); Bilirubin Total 0.5 mg/dL (0.2-1.0); Potassium 4.1 mEq/L (3.5-5.1); Protein, Total 7.2 g/dL (6.4-8.2)
[2023-01-14] MEDS ORDERED: MORPHINE 4 MG/ML SYR ONE ×2 (16:59→18:53)
[2023-01-14] MEDS ORDERED: ACETAMINOPHEN 325 MG TABLET PO PRN (17:54)
[2023-01-14] MEDS ORDERED: HYDROCODONE/APAP 5/325 MG TAB PO PRN (17:54)
[2023-01-14] MEDS ORDERED: MORPHINE 4 MG/ML SYR IV PRN (17:58)
[2023-01-14] MEDS ORDERED: SODIUM CHLORIDE 0.9% 10ML INJ IV PRN (18:01)
--- NOTE | 2023-01-14 18:09 | P.HP ---
Certification for Inpatient Patient admitted to: Observation With expected LOS: <2 Midnights Patient will require the following post-hospital care: None Practitioner: I am a practitioner with admitting privileges, knowledge of patient current condition, hospital course, and medical plan of care. Services: Services provided to patient in accordance with Admission requirements found in Title 42 Section 412.3 of the Code of Federal Regulations Patient History Date of Service: 01/14/23 Reason for admission: Hematemesis History of Present Illness: Patient is a 27-year-old male with a PMHx significant for Anxiety disorder who presents with complaint of abdominal pain and hematemesis. Patient reported that he initially started having nausea and vomiting 2 days ago followed by episodes of hematemesis onset yesterday which has become worse over time. Patient also reported abdominal pain onset yesterday located in the mid epigastric area. Patient rated pain as 9/10 in severity and described pain as sharp in quality. Patient denies any other signs or symptoms. Symptoms are aggravated or relieved by nothing. Patient decided to present to the hospital due to worsening symptoms. Off note patient was seen in the ER yesterday for N\V and hematemesis. Allergies Penicillins Allergy (Verified 01/14/23 19:49) Anaphylaxis Home Medications: ALPRAZolam [Xanax] 1 mg PO BID PRN 01/14/23 - Past Medical/Surgical History Past Medical History: Patient denies medical history -: Anxiety Disorder Past Surgical History: Reviewed- Non-Contributory - Social History Smoking Status: Never smoker Alcohol use: No CD- Drugs: No Caffeine use: Yes Place of Residence: Home Review of Systems General: Unremarkable Eyes: Unremarkable ENT: Unremarkable Respiratory: Unremarkable Cardiovascular: Unremarkable Gastrointestinal: Nausea, Vomiting, Abdominal Pain, Other (Hematemesis ) Genitourinary: Unremarkable Musculoskeletal: Unremarkable Integumentary: Unremarkable Neurological: Unremarkable Lymphatics: Unremarkable Physical Examination - Physical Exam General: Alert, In no apparent distress, Oriented x3, Cooperative HEENT: Atraumatic, PERRLA, Mucous membr. moist/pink, EOMI, Sclerae nonicteric Neck: Supple, 2+ carotid pulse no bruit, No LAD, Without JVD or thyroid abnormality Respiratory: Clear to auscultation bilaterally, Normal air movement Cardiovascular: No edema, Regular rate/rhythm, Normal S1 S2 Capillary refill: <2 Seconds Gastrointestinal: Normal bowel sounds, Non-distended, Tenderness Musculoskeletal: No clubbing, No swelling, No tenderness Integumentary: No rashes Neurological: Normal gait, Normal speech, Normal strength at 5/5 x4 extr, Normal tone, Normal affect Lymphatics: No axilla or inguinal lymphadenopathy - Studies Laboratory Data (last 24 hrs) 01/14/23 14:42: PT 10.0, INR 0.91, APTT 31.6 01/14/23 14:42: Sodium 138, Potassium 4.1, BUN 16, Creatinine 1.08, Glucose 109 H, Total Bilirubin 0.5, AST 49 H, ALT 130 H, Alkaline Phosphatase 61, Lipase 46 01/14/23 14:42: WBC 6.70, Hgb 14.5, Hct 42.7, Plt Count 254 Assessment and Plan - Plan --Hematemesis. H&H stable. Gastroenterology consulted. Patient placed on Protonix. GI MD Plans an EGD in a.m. We will continue to monitor hemoglobin and transfuse if less than 7.0. --Nausea and vomiting. Antiemetics on board. Continue IV hydration. --Enteritis. Noted on CT imaging done yesterday. Patient placed on antibiotics. Continue IV hydration. --Acute pain. We will manage pain with current pain medication regimen. --Anxiety Disorder. Continue home medication -- Elevated LFTs. Unclear etiology. We will continue to monitor Liver functions. -- DVT prophylaxis with SCDs. Discharge Plan: Home Plan to discharge in: 48 Hours - Advance Directives Does patient have a Living Will: No Does patient have a Durable POA for Healthcare: No - Code Status/Comfort Care Code Status Assessed: Yes Physician Review: Patient Assessed, Agree with Above Assessment and Plan Critical Care: No
[2023-01-14] MEDS: ONDANSETRON 4 MG/2 ML VIAL IV PRN (18:31)
[2023-01-14] MEDS ORDERED: ONDANSETRON 4 MG/2 ML VIAL ONE (18:32)
[2023-01-14 18:38] LABS: Phosphorus 2.5 mg/dL (2.5-4.9)
[2023-01-14] MEDS ORDERED: CIPROFLOXACIN 400mg IV 400 MG/200 ML BAG IV ONE (19:58)
[2023-01-14] MEDS ORDERED: METRONIDAZOLE 500mg IVPB 500 MG/100 ML BAG IV ONE (19:58)
[2023-01-14] MEDS: METRONIDAZOLE 500mg IVPB 500 MG/100 ML BAG IV SCH (20:00)
[2023-01-14] MEDS: CIPROFLOXACIN 400mg IV 400 MG/200 ML BAG IV SCH (20:00)
[2023-01-14] MEDS: PANTOPRAZOLE 40 MG INJ IVP SCH (20:03)
[2023-01-14] MEDS ORDERED: HYDROMORPHONE HCL 1 MG/ML INJ IV ONE (20:17)
[2023-01-14] MEDS ORDERED: PROMETHAZINE INJ 25 MG/ML AMP IV ONE (20:17)
[2023-01-14] MEDS ORDERED: HYDROMORPHONE HCL 1 MG/ML INJ ONE (20:32)
[2023-01-14 22:42] VITALS: BMI 31.1
[2023-01-15] MEDS: PROMETHAZINE INJ 25 MG/ML AMP IV PRN ×5 (00:27→20:25)
[2023-01-15] MEDS: HYDROMORPHONE HCL 0.5 MG/0.5 ML INJ IV PRN ×5 (00:30→20:23)
[2023-01-15] MEDS ORDERED: PROMETHAZINE INJ 25 MG/ML AMP ONE ×2 (00:33→05:33)
[2023-01-15] MEDS ORDERED: HYDROMORPHONE HCL 0.5 MG/0.5 ML INJ ONE ×2 (00:33→05:34)
[2023-01-15] MEDS: METRONIDAZOLE 500mg IVPB 500 MG/100 ML BAG IV SCH ×3 (01:00→17:22)
[2023-01-15] MEDS ORDERED: NA CHLORIDE 0.9% 0 ML ONE (01:20)
[2023-01-15] MEDS ORDERED: METRONIDAZOLE 500mg IVPB 500 MG/100 ML BAG IV ONE (01:21)
[2023-01-15] MEDS ORDERED: CIPROFLOXACIN 400mg IV 400 MG/200 ML BAG IV ONE (01:21)
[2023-01-15] MEDS: CIPROFLOXACIN 400mg IV 400 MG/200 ML BAG IV SCH ×3 (01:45→17:22)
[2023-01-15 07:19] LABS: Absolute Lymphocytes (CBC) 2.2 K/uL (0.7-4.9); Hematocrit 40.8 % (39.6-49.0); Lymphocytes % 33.1 % (15.3-44.8); MCV 85.6 fL (80-100); MPV 8.3 fL (7.6-11.3); RBC Red Blood Cell Count 4.77 M/uL (4.33-5.43)
[2023-01-15 07:31] LABS: Albumin 3.6 g/dL (3.4-5.0); Potassium 4.1 mEq/L (3.5-5.1); Protein, Total 6.8 g/dL (6.4-8.2)
--- NOTE | 2023-01-15 07:45 | P.PN ---
Date of Service: 01/15/23 Subjective: feeling alright today abdominal pain persists, + nausea no diarrhea, last BM yesterday afebrile ROS: 10 point ROS as noted above, otherwise negative Physical Exam: GEN: Alert, oriented, NAD HEENT: Normal conjunctiva, sclera anicteric CV: Regular rate and rhythm, no edema Pulm: Nonlabored respirations on room air ABD: Soft, tenderness, nondistended Neuro: Normal speech, normal affect vitals reviewed Problem List: Hematemesis Enteritis Nausea and vomiting Anxiety Disorder Elevated LFTs Hematemesis H&H stable. monitor hemoglobin and transfuse if less than 7.0. GI consulted EGD scope planned today 01/15 Continue Protonix Enteritis Nausea and vomiting Noted on CT imaging Continue antibiotics Continue IVF Continue Antiemetics Pain medication as needed Anxiety Disorder Continue home medication Elevated LFTs Unclear etiology. We will continue to monitor Liver functions. VTE: SCD Code: Full Dispo: Home 24-48hrs
[2023-01-15] MEDS: PANTOPRAZOLE 40 MG INJ IVP SCH ×2 (09:04→20:30)
[2023-01-15] MEDS ORDERED: Ringers Lactate 1,000 ML IV ONE (13:18)
[2023-01-15] MEDS ORDERED: propofoL 200 MG/20 ML VIAL IV ONE ×3 (13:42→13:50)
[2023-01-15] MEDS ORDERED: LIDOCAINE 1% MPF 5 ML VIAL ONE (13:49)
[2023-01-15] MEDS ORDERED: ONDANSETRON 4 MG/2 ML VIAL ONE (14:17)
[2023-01-15 14:47] VITALS: O2SAT 97
--- NOTE | 2023-01-15 15:13 | CON ---
Date of Consultation: 01/15/2023 Reason For Consultation: Hematemesis, upper gastrointestinal bleeding with midepigastric pain. History Of Present Illness: The patient is a 27-year-old white male with history of anxiety disorder , presented to the hospital with midepigastric pain and hematemesis. The patient states he was in hi s usual state of health until approximately 2 days ago, started having nausea, vomiting followed by a n episode of hematemesis. He had 10 episodes on Thursday, 2 episodes yesterday on Thursday, and 9 to day in the hospital in therapy. The patient said his pain is at midepigastric levels, reached up to 10/10 and currently it is mild at 1 to 2/10. The patient denies any emesis or nausea today on therap y in the hospital. Past Medical History: Significant for generalized anxiety disorder. Home Medications: Include Xanax 1 mg p.o. b.i.d. p.r.n. Allergies: TO PENICILLIN GIVES HIM ANAPHYLAXIS. Social History: The patient is , 2 children. No tobacco. Occasional alcohol. Family History: Father and mother both alive and well, though no evident disease in his parents. Review of Systems: The patient has nausea, vomiting, hematemesis, midepigastric pain. Otherwise, no chest pain, shortne ss of breath, seizure, syncope, lower extremity edema, muscle aches, joint aches, backaches, rashes. He does have anxiety. Not clear if he has depression, though his mood seems somewhat depressed. De nies any melena, hematochezia, or epistaxis. Physical Examination: Vital Signs: The patient is 6 feet, 230 pounds, BMI 31.2 kg/m2. Temperature 98.3 degrees Fahrenheit , pulse 62, respirations 16, blood pressure 119/67, O2 saturation 100%. General: He is a well-nourished, well-developed male, in no acute distress, lying in bed. HEENT: Normocephalic, atraumatic. Anicteric. Pupils equal, round, and reactive to light. Extraocu lar movements are intact. Oropharynx is clear. Neck: Supple with no masses. Respirations: Clear to auscultation bilaterally. Cardiac: Regular rate and rhythm. No gallops or rubs. Abdomen: Positive bowel sounds. Soft, nontender. No hepatosplenomegaly. No peritoneal or Alarcon s ign. No rebound. Extremities: No clubbing, cyanosis, or edema. 2+ pulses. Neuro: Alert and oriented x3. Grossly nonfocal. 5/5 motor. Sensation intact to light touch. Laboratory Data: The patient has a white count of 6.6, hemoglobin of 13.9, hematocrit of 40.1, MCV o f 86, platelet count 255, polys of 52%, lymphocytes 33%, monocytes 8%, eosinophils 7%. The patient h as a PT of 10.0, INR 0.91, PTT of 31.6. The patient has sodium of 137, potassium 4.1, chloride 108, bicarb 27, BUN 11, creatinine of 0.98, glucose 89, calcium of 8.7, phosphorus 2.5, magnesium 2.0, tot al bilirubin of 1.0, AST of 47, ALT of 129, alkaline phosphatase 56, total protein 6.8, albumin 3.6, lipase 46. Impression: 1.Hematemesis, upper gastrointestinal bleed since 2 days ago; 10 episodes 2 days ago, 2 episodes yes terday, and none today. The patient has midepigastric pain 10/10 on admission, now down to mild disc omfort now. No pain on exam. Investigate with EGD evaluation. 2.Midepigastric pain as per EGD. 3.Generalized anxiety disorder with past medical history. Recommendations: 1.Continue PPI therapy with serial H and H and transfuse p.r.n. Continue p.r.n. pain medicines, antiemetics. Proceed with EGD. 2.Continue IV fluids and keep the patient n.p.o. until procedure. POOJA/KATELYNN Voice ID: [id number] Report ID: [id number]
[2023-01-15 16:23] LABS: Specific Gravity 1.005 (1.005-1.030); Urine Bilirubin NEGATIVE (Negative); Urine Blood Negative (Negative); Urine Clarity Clear (Clear); Urine Color Colorless (Yellow); Urine Glucose NEGATIVE (Negative); Urine Protein NEGATIVE (Negative); Urine Urobilinogen Normal (Normal)
[2023-01-16] MEDS: METRONIDAZOLE 500mg IVPB 500 MG/100 ML BAG IV SCH ×2 (00:35→09:10)
[2023-01-16] MEDS: HYDROMORPHONE HCL 0.5 MG/0.5 ML INJ IV PRN (00:41)
[2023-01-16] MEDS: ONDANSETRON 4 MG/2 ML VIAL IV PRN (00:41)
[2023-01-16] MEDS: CIPROFLOXACIN 400mg IV 400 MG/200 ML BAG IV SCH ×2 (01:59→09:00)
--- NOTE | 2023-01-16 07:23 | P.PN ---
Date of Service: 01/16/23 Subjective: ROS: 10 point ROS as noted above, otherwise negative Physical Exam: GEN: Alert, oriented, NAD HEENT: Normal conjunctiva, sclera anicteric CV: Regular rate and rhythm, no edema Pulm: Nonlabored respirations on room air ABD: Soft, tenderness, nondistended Neuro: Normal speech, normal affect vitals reviewed Problem List: Hematemesis Enteritis Nausea and vomiting Anxiety Disorder Elevated LFTs Hematemesis H&H stable. monitor hemoglobin and transfuse if less than 7.0. GI consulted EGD scope 01/15 - hiatal hernia, Fallon-Yan tear Continue Protonix Enteritis Nausea and vomiting Noted on CT imaging Continue antibiotics Continue IVF Continue Antiemetics Pain medication as needed Anxiety Disorder Continue home medication Elevated LFTs Unclear etiology. We will continue to monitor Liver functions. VTE: SCD Code: Full Dispo: Home 24-48hrs
[2023-01-16] MEDS: PANTOPRAZOLE 40 MG INJ IVP SCH (09:10)
[2023-01-16 11:48] VITALS: BP 120/71; TEMP 98.5
--- NOTE | 2023-01-16 11:56 | P.DS ---
Admission Date: 01/14/23 Discharge Date: 01/16/23 Disposition: ROUTINE DISCHARGE Discharge Condition: GOOD Reason for Admission: Hematemesis Consultations: Gastrointestinal - Dr. House Brief History of Present Illness: 27yo M, PMH: Anxiety disorder Patient who presents with complaint of abdominal pain and hematemesis. Patient reported that he initially started having nausea and vomiting 2 days ago f ollowed by episodes of hematemesis onset yesterday which has become worse over time. Patient also reported abdominal pain onset yesterday located in the mid epigastric area. Patient rated pain as 9/10 in severity and described pain as sharp in quality. Patient denies any other signs or symptoms. Symptoms are aggravated or relieved by nothing. Patient decided to present to the hospital due to worsening symptoms. Off note patient was seen in the ER yesterday for N\V and hematemesis. Hospital Course: Problem List: Hematemesis Enteritis Nausea and vomiting Anxiety Disorder Elevated LFTs Patient presented with abd pain and hematemesis. Found to have enteritis on imaging. Treated with IV antibiotics and nausea medication. Dr. House, GI, was consulted and noted kirit-hood tear on EGD. Patient's symptoms improved and he tolerated a soft diet. Stable for discharge home. Pepcid daily prescribed until follow up with Dr. House Follow up with Dr. House in ~3-4 weeks. 5 more days of antibiotics Physical Exam: GEN: Alert, oriented, NAD HEENT: Normal conjunctiva, sclera anicteric CV: Regular rate and rhythm, no edema Pulm: Nonlabored respirations on room air ABD: Soft, tenderness, nondistended Neuro: Normal speech, normal affect Vital Signs/Physical Exam: Temp Pulse Resp BP Pulse Ox 98.5 F 66 16 120/71 96 01/16/23 08:00 01/16/23 08:00 01/16/23 08:00 01/16/23 08:00 01/16/23 08:00 Laboratory Data at Discharge: WBC 6.60 thou/uL (4.3-10.9) 01/15/23 06:36 Hgb 13.9 g/dL (13.6-17.9) 01/15/23 06:36 Hct 40.8 % (39.6-49.0) 01/15/23 06:36 Plt Count 255 thou/uL (152-406) 01/15/23 06:36 PT 10.0 SECONDS (9.5-12.5) 01/14/23 14:42 INR 0.91 01/14/23 14:42 APTT 31.6 SECONDS (24.3-36.9) 01/14/23 14:42 Sodium 137 mEq/L (136-145) 01/15/23 06:36 Potassium 4.1 mEq/L (3.5-5.1) 01/15/23 06:36 BUN 11 mg/dL (7-18) 01/15/23 06:36 Creatinine 0.98 mg/dL (0.70-1.30) 01/15/23 06:36 Glucose 89 mg/dL (74-106) 01/15/23 06:36 Phosphorus 2.5 mg/dL (2.5-4.9) 01/14/23 14:42 Magnesium 2.0 mg/dL (1.6-2.4) 01/14/23 14:42 Total Bilirubin 1.0 mg/dL (0.2-1.0) 01/15/23 06:36 AST 47 U/L (15-37) H 01/15/23 06:36 ALT 129 U/L (16-61) H 01/15/23 06:36 Alkaline Phosphatase 56 U/L (45-117) 01/15/23 06:36 Lipase 46 U/L (13-75) 01/14/23 14:42 Home Medications: ALPRAZolam [Xanax*] 1 mg PO BID PRN 01/14/23 Ciprofloxacin HCl 500 mg PO BID 5 Days #10 tab 01/16/23 Famotidine [Pepcid] 40 mg PO DAILY 30 Days #30 tab 01/16/23 metroNIDAZOLE [Flagyl*] 500 mg PO Q8H 5 Days #15 tab 01/16/23 New Medications: Ciprofloxacin HCl 500 mg PO BID 5 Days #10 tab metroNIDAZOLE [Flagyl*] 500 mg PO Q8H 5 Days #15 tab Famotidine [Pepcid] 40 mg PO DAILY 30 Days #30 tab Physician Discharge Instructions: Patient presented with abd pain and hematemesis. Found to have enteritis on imaging. Treated with IV antibiotics and nausea medication. Dr. House, GI, was consulted and noted kirti-hood tear on EGD. Patient's symptoms improved and he tolerated a soft diet. Stable for discharge home. Pepcid daily prescribed until follow up with Dr. House Follow up with Dr. House in ~3-4 weeks. 5 more days of antibiotics Followup: NONE,NONE [Primary Care Provider] - George House MD [ASSOCIATE-ACTIVE - CAN ADMIT] - Time spent managing pt's care (in minutes): 45
[2023-01-16] MEDS ORDERED: CIPROFLOXACIN 400mg IV 400 MG/200 ML BAG IV SCH (21:00)
== END 2023-01-16 14:12 | disposition home or self-care (01) | DRG 391 ==
LOC: ER 13:56 → ERHOLD 17:53 → 4TH 01-15 06:05
PROVIDERS: ADMIT Hospitalist; ATTEND Hospitalist
PROC: 0DJ08ZZ Inspection of Upper Intestinal Tract, Via Natural or Artificial Opening Endoscopic (ICD-10-PCS; principal; 2023-01-15 12:45)
DX: K52.9 Noninfective gastroenteritis and colitis, unspecified (principal); K22.6 Gastro-esophageal laceration-hemorrhage syndrome; K92.0 Hematemesis; K44.9 Diaphragmatic hernia without obstruction or gangrene; R79.89 Other specified abnormal findings of blood chemistry; F41.9 Anxiety disorder, unspecified; F17.220 Nicotine dependence, chewing tobacco, uncomplicated; Z88.0 Allergy status to penicillin
CPT/HCPCS: 36415; 80053; 81003; 82550; 83690; 83735; 84100; 85025; 85610; 85730; 96374; 96375; 99284; C9113; J0744; J1170; J2001; J2405; J2550; J2704; J7050; J7120